=== PATIENT | male | born 1945 | race Caucasian/White ===

== ENCOUNTER → 2020-08-05 | Outpatient (CLI) | payer MEDICARE ==
[~2020-08-05] MED LIST: ALBUTEROL2.5 MG/3 M INH; AMLODIPINE BESYL5 MG PO; ASPIRIN EC81 MG PO; ASPIRIN325 MG PO; BENTYL 20MG TAB20 MG PO; CITALOPRAM HBR40 MG PO; COREG 3.125M3.125 MG PO; DIGOX125 MCG PO; FUROSEMIDE40 MG PO; IMDUR ER TAB 3030 MG PO; ISOSORBIDE MON120 MG PO; LASIX20 MG PO; MELATONIN10 M2 PO; POTASSIUM CHLO20 ME1 PO; PREDNISONE20 MG PO; PROTONIX 40 MG40 M1 PO; SYNTHROID25 MCG PO; TYLENOL W/CODEIN1 EA PO; ZOCOR20 MG PO; ZYRTEC10 MG PO; [UNRECOGNIZED DRUG - SUPPLY]
== END ==
LOC: US 07-28 15:30
PROVIDERS: Internal Medicine Nephrology
DX: N17.9 Acute kidney failure, unspecified (principal); K80.80 Other cholelithiasis without obstruction
CPT/HCPCS: 36415; 80053